=== PATIENT | female | born 1980 | race Caucasian/White ===

== ENCOUNTER 2016-09-25 13:34 | Emergency (ER) | payer OTHER ==
[~2016-09-25] VITALS: Ht 170.2 cm; Wt 136.1 kg
[~2016-09-25 13:34] MED LIST: ALBU17AE26 IH; IBUP-1017 PO
--- NOTE | 2016-09-25 13:34 | NUR ---
BROUGHT BACK TO BED #7 AND TRIAGED. REPORT GIVEN TO HANG.
[2016-09-25 13:35] VITALS: BP 149/100; PULSE 83; RESP 19; TEMP 97.3; O2SAT 97
--- NOTE | 2016-09-25 13:35 | NUR ---
Dr. Tran at bedside to assess pt.
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
--- NOTE | 2016-09-25 14:50 | NUR ---
Patient given written and verbal discharge instructions and verbalizes understanding. ER MD discussed with patient the results and treatment provided. Patient in stable condition. ID arm band removed. Patient educated on pain management and to follow up with PMD. Pain Scale 0/10 . Opportunity for questions provided and answered.
[2016-09-25 14:51] VITALS: BP 142/100; PULSE 83; RESP 19; TEMP 97.3; O2SAT 97
== END 2016-09-25 14:51 | disposition home or self-care (01) ==
LOC: SED 13:34
DX: M77.52 Other enthesopathy of left foot and ankle (principal); J45.909 Unspecified asthma, uncomplicated; Z91.040 Latex allergy status
CPT/HCPCS: 99284

== ENCOUNTER 2017-01-20 18:32 | Emergency (ER) | payer OTHER ==
[~2017-01-20] VITALS: Ht 165.1 cm; Wt 136.1 kg
[~2017-01-20 18:32] MED LIST changes: -IBUP-1017 PO
[2017-01-20] MEDS ORDERED: KETOROLAC TROMETHAMINE 60 MG/2 ML VIAL IM ONE (18:45)
[2017-01-20 18:50] VITALS: BP_SYST 118
[2017-01-20] MEDS ORDERED: ACETAMINOPHEN 500 MG TABLET PO ONE (19:00)
[2017-01-20 20:52] VITALS: BP_SYST 120
== END 2017-01-20 20:52 | disposition home or self-care (01) ==
LOC: SED 18:32
DX: S16.1XXA Strain of muscle, fascia and tendon at neck level, initial encounter (principal); J45.909 Unspecified asthma, uncomplicated; Z98.84 Bariatric surgery status; Z91.040 Latex allergy status; V89.2XXA Person injured in unspecified motor-vehicle accident, traffic, initial encounter; Y93.89 Activity, other specified; Y92.410 Unspecified street and highway as the place of occurrence of the external cause; Y99.8 Other external cause status
CPT/HCPCS: 72125-TC; 81025; 99284

== ENCOUNTER 2017-01-24 22:40 | Emergency (ER) | payer OTHER ==
[~2017-01-24] VITALS: Ht 170.2 cm; Wt 136.1 kg
[2017-01-24 22:45] VITALS: BP_SYST 157
[2017-01-24] MEDS ORDERED: KETOROLAC TROMETHAMINE 60 MG/2 ML VIAL IM ONE (23:30)
[2017-01-25 00:45] VITALS: BP_SYST 128
== END 2017-01-25 00:45 | disposition home or self-care (01) ==
LOC: SED 22:40
DX: S16.1XXA Strain of muscle, fascia and tendon at neck level, initial encounter (principal); J45.909 Unspecified asthma, uncomplicated; Z91.040 Latex allergy status; V43.52XA Car driver injured in collision with other type car in traffic accident, initial encounter; Y93.89 Activity, other specified; Y92.89 Other specified places as the place of occurrence of the external cause; Y99.8 Other external cause status
CPT/HCPCS: 72040; 81025; 96372; 99284; J1885

== ENCOUNTER 2018-02-26 18:41 | Emergency (ER) | payer OTHER ==
[~2018-02-26] VITALS: Ht 170.2 cm; Wt 140.6 kg
[2018-02-26 18:52] VITALS: BP_SYST 141
--- NOTE | 2018-02-26 18:58 | NUR ---
Pt placed to ER waiting room in stable condition.
--- NOTE | 2018-02-26 19:27 | NUR ---
Pt AAOx4 presents to ED c/o abdominal and back pain x 1 week accompanying dark vaginal bleeding. Pt reports she took 2 home tests 1 month ago which were both positive. Pt skin pink dry and warm, breathing even and unlabored. No other injuries/complaints per pt/noted. Will continue to monitor.
[2018-02-26 19:43] LABS: BASOPHILS # (AUTO) 0.1 K/uL (0.0-0.2); BASOPHILS % (AUTO) 0.7 % (0.0-2.0); EOSINOPHILS # (AUTO) 0.2 K/uL (0.0-0.4); EOSINOPHILS % (AUTO) 2.1 % (0.0-4.0); HEMATOCRIT 41.7 % (36-48); HEMOGLOBIN 14.3 g/dL (12.0-16.0); LYMPHOCYTES # (AUTO) 2.7 K/uL (1.0-5.5); LYMPHOCYTES % (AUTO) 23.6 % (20.5-51.5); MEAN CORPUSCULAR HEMOGLOBIN 30 pg (27-31); MEAN CORPUSCULAR HGB CONC 34 % (32-36); MEAN CORPUSCULAR VOLUME 87 fL (79.0-98.0); MONOCYTES # (AUTO) 0.6 K/uL (0.0-1.0); MONOCYTES % (AUTO) 5.1 % (1.7-9.3); NEUTROPHILS # (AUTO) 7.9 K/uL (1.8-7.7); NEUTROPHILS % (AUTO) 68.5 % (40.0-70.0); PLATELET COUNT (AUTO) 294 K/uL (130-430); RED BLOOD CELL COUNT(AUTO) 4.81 MIL/uL (4.2-6.2); RED CELL DISTRIBUTION WIDTH 13.7 % (9.0-15.0); WHITE BLOOD COUNT (AUTO) 11.5 K/uL (4.8-10.8)
[2018-02-26 19:49] LABS: CALCIUM 9.3 mg/dL (8.4-11.0); CREATININE 0.91 mg/dL (0.55-1.30); POTASSIUM 4.2 mmol/L (3.5-5.1)
[2018-02-26 19:59] LABS: ALBUMIN 3.7 g/dL (3.4-4.8); TOTAL BILIRUBIN 1.1 mg/dL (0.0-1.0)
--- NOTE | 2018-02-26 20:17 | NUR ---
ER Dr. Garcia at bedside examining patient.
[2018-02-26 23:20] VITALS: BP_SYST 139
--- NOTE | 2018-02-26 23:20 | NUR ---
Patient given written and verbal discharge instructions and verbalizes understanding. ER MD Garcia discussed with patient the results and treatment provided. Patient in stable condition. ID arm band removed. Rx of Naprosyn given. Patient educated on pain management and to follow up with PMD. Pain Scale 0. Opportunity for questions provided and answered. Medication side effect fact sheet provided.
== END 2018-02-26 23:20 | disposition home or self-care (01) ==
LOC: SED 18:41
DX: N93.8 Other specified abnormal uterine and vaginal bleeding (principal); J45.909 Unspecified asthma, uncomplicated; Z91.040 Latex allergy status
CPT/HCPCS: 36415; 76830-TC; 76857; 80053; 84702-TC; 85025; 86900; 86901; 99285

== ENCOUNTER 2018-03-02 18:48 | Emergency (ER) | payer OTHER ==
[~2018-03-02] VITALS: Ht 170.2 cm; Wt 136.1 kg
[2018-03-02 18:53] VITALS: BP_SYST 148
--- NOTE | 2018-03-02 18:57 | NUR ---
Pt placed to ER bed 08.
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
--- NOTE | 2018-03-02 19:20 | NUR ---
FABRICIO Hyman at bedside examining patient.
[2018-03-02] MEDS ORDERED: KETOROLAC TROMETHAMINE 60 MG/2 ML VIAL IM ONE (19:30)
--- NOTE | 2018-03-02 19:33 | NUR ---
Medication was given, pt tolerated well. No adverse reaction, will continue to monitor.
[2018-03-02 20:14] LABS: BILIRUBIN,URINE NEGATIVE (NEGATIVE); BLOOD, URINE 1+ (NEGATIVE); CLARITY/URINE CLEAR (CLEAR); COLOR,URINE YELLOW (YELLOW); GLUCOSE,URINE NEGATIVE (NEGATIVE); KETONES,URINE NEGATIVE (NEGATIVE); LEUKOCYTE ESTERASE ,URINE NEGATIVE (NEGATIVE); NITRITE, URINE NEGATIVE (NEGATIVE); PH,URINE 6.5 (5.0-8.0); PROTEIN URINE NEGATIVE (NEGATIVE)
[2018-03-02 20:20] LABS: BACTERIA,URINE FEW /HPF (None Seen); MUCUS,URINE None Seen /LPF (None Seen); RBC,URINE 0-3 /HPF (0-3); WBC,URINE 0-3 /HPF (0-3)
--- NOTE | 2018-03-02 21:01 | NUR ---
ER Dr. Hyman at bedside explaining results to patient.
[2018-03-02 21:10] VITALS: BP_SYST 133
--- NOTE | 2018-03-02 21:10 | NUR ---
Patient given written and verbal discharge instructions and verbalizes understanding. ER MD discussed with patient the results and treatment provided. Patient in stable condition. ID arm band removed. Rx of Naproxen and Flexeril given. Patient educated on pain management and to follow up with PMD. Pain Scale 4. Dr. Hyman aware, Medications were given here and prescription home. Opportunity for questions provided and answered. Medication side effect fact sheet provided.
== END 2018-03-02 21:10 | disposition home or self-care (01) ==
LOC: SED 18:48
DX: S16.1XXA Strain of muscle, fascia and tendon at neck level, initial encounter (principal); S39.012A Strain of muscle, fascia and tendon of lower back, initial encounter; J45.909 Unspecified asthma, uncomplicated; Z91.040 Latex allergy status; V43.52XA Car driver injured in collision with other type car in traffic accident, initial encounter; Y93.89 Activity, other specified; Y92.410 Unspecified street and highway as the place of occurrence of the external cause; Y99.8 Other external cause status
CPT/HCPCS: 72040; 72100; 81000; 96372; 99285; J1885

== ENCOUNTER 2018-12-08 17:38 | Emergency (ER) | payer OTHER, MEDICAID ==
[~2018-12-08] VITALS: Ht 170.2 cm; Wt 136.1 kg
[2018-12-08 17:49] VITALS: BP_SYST 154
== END 2018-12-08 20:10 | disposition left against medical advice (07) ==
LOC: SED 17:38
DX: M25.561 Pain in right knee (principal); J45.909 Unspecified asthma, uncomplicated; I10 Essential (primary) hypertension; Z91.040 Latex allergy status; Z53.21 Procedure and treatment not carried out due to patient leaving prior to being seen by health care provider
CPT/HCPCS: 73564